=== PATIENT | male | born 1970 | race Caucasian/White ===

== ENCOUNTER → 2020-02-29 | Outpatient (REF) | payer OTHER ==
[2020-03-01 11:19] LABS: BASO # 0.1 10^3/uL (0.0-0.2); BASO % 0.8 % (0.0-1.0); EOS # 0.3 10^3/uL (0.0-0.5); EOS % 4.8 % (0.0-3.0); HEMATOCRIT 44.2 % (42.0-52.0); LYMPH % 32.6 % (24.0-44.0); MEAN CORPUSCULAR HEMOGLOBIN 28.4 pg (27.0-33.0); MEAN CORPUSCULAR HGB CONC 31.7 g/dl (32.0-36.5); MEAN CORPUSCULAR VOLUME 89.7 fl (80.0-96.0); MONO # 0.7 10^3/uL (0.0-0.8); MONO % 10.5 % (0.0-5.0); NEUTROPHILS # 3.2 10^3/uL (1.5-8.5); NEUTROPHILS % 51.1 % (36.0-66.0); PLATELET COUNT, AUTOMATED 277 10^3/uL (150-450); RED BLOOD COUNT 4.93 10^6/uL (4.30-6.10); WHITE BLOOD COUNT 6.3 10^3/uL (4.0-10.0)
[2020-03-01 11:47] LABS: CHOLESTEROL RISK RATIO 2.818 (<5)
== END ==
LOC: M SFHCCLAY 14:47
PROVIDERS: ATTEND Family Medicine
DX: Z00.00 Encounter for general adult medical examination without abnormal findings (principal); Z13.220 Encounter for screening for lipoid disorders; Z13.1 Encounter for screening for diabetes mellitus

== ENCOUNTER → 2020-03-14 | Outpatient (REF) | payer OTHER ==
[2020-03-15 12:24] LABS: ALBUMIN 4.5 GM/DL (3.2-5.2); ALT/SGPT 40 U/L (12-78); BILIRUBIN,TOTAL 1.2 MG/DL (0.2-1.0); BLOOD UREA NITROGEN 17 MG/DL (7-18); CALCIUM LEVEL 9.4 MG/DL (8.5-10.1); CARBON DIOXIDE LEVEL 30 MEQ/L (21-32); CHLORIDE LEVEL 103 MEQ/L (98-107); CREATININE FOR GFR 0.98 MG/DL (0.70-1.30); GLOMERULAR FILTRATION RATE > 60.0 (>56); GLUCOSE, FASTING 90 MG/DL (70-100); POTASSIUM SERUM 5.9 MEQ/L (3.5-5.1); SODIUM LEVEL 137 MEQ/L (136-145); TOTAL PROTEIN 7.7 GM/DL (6.4-8.2)
== END ==
LOC: M SFHCCLAY 14:29
PROVIDERS: ATTEND Family Medicine
DX: Z00.00 Encounter for general adult medical examination without abnormal findings (principal); Z13.1 Encounter for screening for diabetes mellitus; Z13.220 Encounter for screening for lipoid disorders

== ENCOUNTER → 2020-04-05 | Outpatient (REF) | payer OTHER ==
[~2020-04-05] MED LIST: EPIP0.3I2 IM
[2020-04-06 13:42] LABS: BLOOD UREA NITROGEN 15 MG/DL (7-18); CARBON DIOXIDE LEVEL 27 MEQ/L (21-32); CHLORIDE LEVEL 102 MEQ/L (98-107); GLOMERULAR FILTRATION RATE > 60.0 (>56); GLUCOSE, FASTING 88 MG/DL (70-100); POTASSIUM SERUM 6.2 MEQ/L (3.5-5.1); SODIUM LEVEL 136 MEQ/L (136-145)
== END ==
LOC: M SFHCCLAY 14:41
PROVIDERS: ATTEND Family Medicine
DX: E87.5 Hyperkalemia (principal)

== ENCOUNTER → 2020-04-06 | Outpatient (CLI) | payer OTHER ==
[2020-04-06 16:37] LABS: CREATININE FOR GFR 1.52 MG/DL (0.70-1.30); GLOMERULAR FILTRATION RATE 51.7 (>56); POTASSIUM SERUM 4.1 MEQ/L (3.5-5.1)
[2020-04-06 16:38] LABS: CALCIUM LEVEL 9.2 MG/DL (8.5-10.1)
== END ==
LOC: M LAB 15:38
PROVIDERS: ATTEND Family Medicine
DX: E87.5 Hyperkalemia (principal)

== ENCOUNTER → 2020-04-14 | Outpatient (CLI) | payer OTHER | LOC: M LABSMTC 13:51 | PROVIDERS: ATTEND Anesthesiology | DX: Z01.812 Encounter for preprocedural laboratory examination (principal); Z20.822 Contact with and (suspected) exposure to COVID-19 ==

== ENCOUNTER 2020-04-19 06:45 | Day surgery (SDC) | payer OTHER ==
[~2020-04-19] VITALS: Ht 177.8 cm; Wt 89.4 kg
--- OUTSIDE RECORDS SUMMARY | 2020-04-19 06:51 | CCD ---
Continuity of Care Document (CCD) Created on: 03/28/2020 Aldo Maldonado External Reference #: [id number] : 1970 Sex: Male Author Author Aldo KIRKPATRICK MD Organization Unknown Address [address] [facility] [address] [place] [address] Phone [phone] Care Team Providers Care Histotechnologist Supervisor Name Role Phone Reta Figueroa D.O. AUTM [phone] Problems Description No Information Available Social History Type Date Description Comments Sex Unknown ETOH Use 10 on the Weekends Tobacco Use Start: Unknown Denies Smoking Recreational Drug Use Denies Drug Use Allergies, Adverse Reactions, Alerts Description No Known Drug Allergies Medications Active Medications SIG Qnty Indications Ordering Provide r Date Metamucil 0.52gm Capsules 1 cap by mouth qd Unknown Immunizations Description No Information Available Vital Signs Date Vital Result Comment 03/28/2020 3:10pm BP Systolic 130 mmHg BP Diastolic 86 mmHg Heart Rate 71 /min Height 70 inches 5'10" Weight 203.50 lb BMI (Body Mass Index) 29.2 kg/m2 [facility] Body Weight 166 lb Weight 92.308 kg BSA (Body Surface Area) 2.10 m2 Results Description No Information Available Procedures Description No Information Available Medical Devices Description No Information Available Encounters Description No Information Available Assessments Description No Information Available Plan of Treatment No Information Available Functional Status Description No Information Available Mental Status Description No Information Available Referrals Refer to Reason for Referral Status Appt Date Jonathan Kirkpatrick MD COLONOSCOPY Created 03/01/[address] [address] [phone]
--- OUTSIDE RECORDS SUMMARY | 2020-04-19 06:51 | CCD | Continuity of Care Document ---
Author Author Aldo BUNCH PA Organization Unknown Address [address] [place] [address] [place] [address] Phone [phone] Care Team Providers Care French Weaver Name Role Phone Anthony Low MD AUTM [phone] Joey Cummings AUTM [phone] Problems Description No Information Available Social History Type Date Description Comments Sex Unknown ETOH Use Denies alcohol use Tobacco Use Start: Unknown Patient has never smoked Smoking Status Reviewed: 04/01/20 Patient has never smoked Allergies, Adverse Reactions, Alerts Active Allergies Reaction Severity Comments Date NKDA 12/27/2016 Bee Sting 04/01/2020 Medications Active Medications SIG Qnty Indications Ordering Provide r Date Meclizine HCL 25mg Tablets 1-2 tablets by mouth three times daily as needed for dizziness. 30tabs H81.399 Cortes Winchester JR., M.D. 04/01/2020 Aspirin 325mg Tablets Last dose this morning Unknown History Medications No Active Medications Unknown - 04/01/2020 Immunizations Description No Information Available Vital Signs Date Vital Result Comment 04/01/2020 10:06am BP Systolic 141 mmHg BP Diastolic 92 mmHg Heart Rate 67 /min Respiratory Rate 12 /min O2 % BldC Oximetry 97 % Body Temperature 98.6 F Weight 198.00 lb Height 70 inches 5'10" BMI (Body Mass Index) 28.4 kg/m2 Pain Level 2 12/27/2016 12:22pm BP Systolic 118 mmHg BP Diastolic 82 mmHg Heart Rate 76 /min Respiratory Rate 18 /min O2 % BldC Oximetry 97 % Body Temperature 98.2 F Weight 200.00 lb Height 70 inches 5'10" BMI (Body Mass Index) 28.7 kg/m2 Pain Level 5 Results Description No Information Available Procedures Description No Information Available Medical Devices Description No Information Available Encounters Type Date Location Provider Dx Diagnosis Office Visit 04/01/2020 9:10a Main Office BARRY Ruiz H81.3 99 Other peripheral vertigo, unspecified ear Z20.828 Contact w and exposure to ot h viral communicable diseases Assessments Date Code Description Provider 04/01/2020 H81.399 Other peripheral vertigo, unspec ified ear BARRY Ruiz 04/01/2020 Z20.828 Contact with and (merino spected) exposure to other viral communicable diseases BARRY Ruiz Plan of Treatment No Information Available Functional Status Description No Information Available Mental Status Description No Information Available Referrals Description No Information Available
--- OUTSIDE RECORDS SUMMARY | 2020-04-19 06:51 | CCD | Continuity of Care Document ---
Author Author Aldo BUNCH Organization Unknown Address [address] [place] [address] [place] [address] Phone [phone] Care Team Providers Care Route Sales Person Name Role Phone Anthony Low MD AUTM [phone] Joey Cummings AUTM [phone] Problems Description No Information Available Social History Type Date Description Comments Sex Unknown ETOH Use Denies alcohol use Tobacco Use Start: Unknown Patient has never smoked Smoking Status Reviewed: 04/01/20 Patient has never smoked Allergies, Adverse Reactions, Alerts Active Allergies Reaction Severity Comments Date NKDA 12/27/2016 Bee Sting 04/01/2020 Medications Active Medications SIG Qnty Indications Ordering Provide r Date Aspirin 325mg Tablets Last dose this morning [...] Description No Information Available Plan of Treatment 04/01/2020 - BARRY Ruiz* All * New Medication:* No Active Medications - Functional Status Description No Information Available Mental Status Description No Information Available Referrals Description No Information Available
--- OUTSIDE RECORDS SUMMARY | 2020-04-19 06:51 | CCD ---
Author Author [facility] Organization [facility] Address Unknown Phone Unavailable Care Team Providers Care Bsa/Aml Compliance Officer Name Role Phone Mehul SUAREZ Unavailable Unavailable DANIELAMehul PA Unavailable Unavailable DANIELA, Mehul VIDES PA Unavailable Unavailable DANIELA, Mehul VIDES PA Unavailable Unavailable DANIELA, Mehul VIDES PA Unavailable Unavailable DANIELA, Mehul VIDES PA Unavailable Unavailable DANIELA, Mehul VIDES PA Unavailable Unavailable DANIELA, Mehul VIDES PA Unavailable Unavailable DANIELA, Mehul VIDES PA Unavailable Unavailable DANIELA, Mehul VIDES PA Unavailable Unavailable DANIELA, Mehul VIDES PA Unavailable Unavailable DANIELA, Mehul VIDES PA Unavailable Unavailable DANIELA, Mehul VIDES PA Unavailable Unavailable DANIELA, Mehul VIDES PA Unavailable Unavailable DANIELA, Mehul VIDES PA Unavailable Unavailable DANIELA, L PEEWEE PA Unavailable Unavailable DANIELA, L PEEWEE PA Unavailable Unavailable DANIELA, Meuhl VIDES PA Unavailable Unavailable DANIELA, Mehul VIDES PA Unavailable Unavailable WarnerSera PA Unavailable Unavailable WarnerSeran PA Unavailable Unavailable WarnerSera Beth PA Unavailable Unavailable WarnerSeran PA Unavailable Unavailable WarnerZamzamy Beth PA Unavailable Unavailable WarnerSera Beth PA Unavailable Unavailable WarnerZamzamy Beth PA Unavailable Unavailable WarnerSera Beth PA Unavailable Unavailable Warner Sera Beth PA Unavailable Unavailable WarnerZamzamy Beth PA Unavailable Unavailable Re-disclosure Warning The records that you are about to access may contain information from federally-assisted alcohol or drug abuse programs. If such information is present, then the following federally mandated warning applies: This information has been disclosed to you from records protected by federal confidentiality rules (42 CFR part 2). The federal rules prohibit you from making any further disclosure of this information unless further disclosure is expressly permitted by the written consent of the person to whom it pertains or as otherwise permitted by 42 CFR part 2. A general authorization for the release of medical or other information is NOT sufficient for this purpose. The Federal rules restrict any use of the information to criminally investigate or prosecute any alcohol or drug abuse patient.The records that you are about to access may contain highly sensitive health information, the redisclosure of which is protected by Article 27-F of the [facility] Public Health law. If you continue you may have access to information: Regarding HIV / AIDS; Provided by facilities licensed or operated by the [facility] Office of Mental Health; or Provided by the [facility] Office for People With Developmental Disabilities. If such information is present, then the following [facility] mandated warning applies: This information has been disclosed to you from confidential records which are protected by state law. State law prohibits you from making any further disclosure of this information without the specific written consent of the person to whom it pertains, or as otherwise permitted by law. Any unauthorized further disclosure in violation of state law may result in a fine or senior living sentence or both. A general authorization for the release of medical or other information is NOT sufficient authorization for further disc losure. Family History Family Member Name Family Member Gender Family Member Status Date o f Status Description Data Source(s) Unknown Unknown Problem [facility] ([facility], [facility]) father=brain Unknown Unknown Problem [facility] ([facility] Encounters Encounter Providers Location Date Indications Data Source(s ) Outpatient Attender: Beth powell 04/01/2020 08:10:00 AM EST [facility] ([facility]) Emergency Attender: PEEWEE REDDY 10/09 04:11:00 PM EDT - 11/03/2019 06:07:00 PM T [facility] Patient discharged. Medications Medication Brand Name Start Date Product Form Dose Route Admi nistrative Instructions Pharmacy Instructions Status Indications Reaction Description Data Source(s) Meclizine Hydrochloride 25 MG Oral Tablet Meclizine HCL 04/01/2020 12:00:00 AM EST ORAL active [facility] ([facility], [facility]) No Active Medications 04/01/2020 12:00:00 AM EST completed [facility] ([facility], [facility]) Insurance Providers Payer name Policy type / Coverage type Policy ID Covered democrat ID Covered democrat's relationship to stephenson Policy Stephenson Plan Information [facility] [id number] SP [id number] [facility] [id number] S [id number] [facility] [id number] S [id number] 2 [employer] [id number] Self [id number] [employer] [id number] 18 [id number] [employer] Self [id number] Problems, Conditions, and Diagnoses Code Display Name Description Problem Type Effective Dates Data Source(s) Y93.89 Activity, other specified ACTIVITY, OTHER SPECIFIED Di agnosis 11/03/2019 04:11:00 PM [facility] Y92.[address] in unspeci fied non-institutional (private) residence as the place of occurrence of the external cause [facility] Diagnosis 11/03[facility]2019 [facility] Other longterm (current) drug therapy O THER BOOK PACKER (CURRENT) DRUG THERAPY Diagnosis 11/03/2019 04:11:00 PM [facility] T63.441A Toxic effect of venom of bee s, accidental (unintentional), initial encounter TOXIC EFFECT OF VENOM OF BEES, ACCIDENTAL, INIT Diagnosis 11/03/2019 04:11:00 PM [facility] Results ID Date Data Source [id number] 04/14/2020 12:00:00 PM EST [facility] Name Value Range Interpretation Code Description Data Kady rce(s) Supporting Document(s) SARS coronavirus 2 RNA Not Detected [facility] This lab was ordered by [facility] and reported by [facility]. ID Date Data Source [id number] 04/01/2020 12:00:00 AM EST [facility] Name Value Range Interpretation Code Description Data Kady rce(s) Supporting Document(s) SARS coronavirus 2 Ag Negative [facility] This lab was ordered by [facility] and reported by [facility]. ID Date Data Source [id number] 11/05/2019 10:31:00 AM EDT [facility] Patient: LISY GAO Rep ort - Phys[facility].VisitID: [id number] [place] [address] [phone], MRegistration Date/Time: 11/03/2019 15:15 Weight:88.4 kg (S). Height/Length:70 inches (S). BMI:28 FAMILY HISTORYNegative. No significant family medical history. (Electronically signed by Joel Pendleton 11/05/2019 10:23) Name Value Range Interpretation Code Description Data Kady rce(s) Supporting Document(s) Procedure Social History Code Duration Value Status Description Data Source(s ) Smoking 04/01/2020 12:00:00 AM EST Patient has never smoked co mpleted Patient has never smoked [facility] ([facility]) Vital Signs ID Date Data Source UNK Name Value Range Interpretation Code Description Data Source(s) Body mass index (BMI) [Ratio] 28.4 kg/m2 28.4 k g/m2 [facility] ([facility]) Body height 70 [in_i] 70 [in_i] [facility] 5'10" Body weight 198.00 [lb_av] 198.00 [lb_av] [facility] T ([facility]) Body temperature 98.6 [degF] 98.6 [degF] [facility] ([facility]) Oxygen saturation in Arterial blood by Pulse oximetry 97 % 97 % [facility] ([facility]) Respiratory rate 12 /min 12 /min [facility] ( [facility]) Heart rate 67 /min 67 /min [facility] ([facility]) Diastolic blood pressure 92 mm[Hg] 92 mm[Hg] [facility] ([facility]) Systolic blood pressure 141 mm[Hg] 141 mm[Hg] [facility]) Body surface area Derived from formula 2.10 m2 2.10 m2 [facility] ([facility], ) Body weight 92.308 kg 92.308 kg [facility] ([facility]) Fraser body weight 166 [lb_av] 166 [lb_av] [facility] T ([facility]) Body mass index (BMI) [Ratio] 29.2 kg/m2 29.2 k g/m2 [facility] ([facility]) Body weight 203.50 [lb_av] 203.50 [lb_av] [facility] T ([facility], ) Body height 70 [in_i] 70 [in_i] [facility] ([facility], ) 5'10" Heart rate 71 /min 71 /min [facility] ([facility], ) Diastolic blood pressure 86 mm[Hg] 86 mm[Hg] [facility]) Systolic blood pressure 130 mm[Hg] 130 mm[Hg] Sylvester ZHANG ([facility], )
[2020-04-19] MEDS ORDERED: NS 1,000 ML IV ONE (07:00)
[2020-04-19] MEDS ORDERED: propofoL 200 MG/20 ML VIAL As Ordered ONE ×2 (07:21→08:04)
[2020-04-19] MEDS ORDERED: LIDOCAINE 2% 100MG/5ML SDV (FOR ANES.) As Ordered ONE (07:21)
--- NOTE | 2020-04-19 08:14 | ROOR ---
Patient Name: Aldo Maldonado Procedure Date: 04/19/2020 7:33 AM Date of : 1970 Age: 50 Room: [facility] Gender: Male Note Status: Finalized Procedure: Colonoscopy Indications: Screening for colorectal malignant neoplasm Providers: Jonathan Kirkpatrick MD Referring MD: Reta MICHAELS DO Requesting Provider: Medicines: Monitored Anesthesia Care Complications: No immediate complications. Procedure: Pre-Anesthesia Assessment: - Prior to the procedure, a History and Physical was performed, and patient medications and allergies were reviewed. The patient is competent. The risks and benefits of the procedure and the sedation options and risks were discussed with the patient. All questions were answered and informed consent was obtained. Patient identification and proposed procedure were verified by the physician, the nurse and the contract analyst in the endoscopy suite. Mental Status Examination: alert and oriented. Airway Examination: normal oropharyngeal airway and neck mobility. Respiratory Examination: clear to auscultation. CV Examination: normal. Prophylactic Antibiotics: The patient does not require prophylactic antibiotics. Prior Anticoagulants: The patient has taken no previous anticoagulant or antiplatelet agents. ASA Grade Assessment: II - A patient with mild systemic disease. After reviewing the risks and benefits, the patient was deemed in satisfactory condition to undergo the procedure. The anesthesia plan was to use monitored anesthesia care (MAC). Immediately prior to administration of medications, the patient was re-assessed for adequacy to receive sedatives. The heart rate, respiratory rate, oxygen saturations, blood pressure, adequacy of pulmonary ventilation, and response to care were monitored throughout the procedure. The physical status of the patient was re-assessed after the procedure. The Colonoscope was introduced through the anus and advanced to the cecum, identified by appendiceal orifice and ileocecal valve. The colonoscopy was performed without difficulty. The patient tolerated the procedure well. The quality of the bowel preparation was good. Findings: Skin tags were found on perianal exam. Hemorrhoids were found on perianal exam. A diminutive polyp was found in the transverse colon. The polyp was sessile. The polyp was removed with a cold snare. Resection and retrieval were complete. Estimated blood loss: none. A few small-mouthed diverticula were found in the sigmoid colon. Non-bleeding internal hemorrhoids were found during retroflexion. The hemorrhoids were Grade II (internal hemorrhoids that prolapse but reduce spontaneously). Impression: - Perianal skin tags found on perianal exam. - Hemorrhoids found on perianal exam. - One diminutive polyp in the transverse colon, removed with a cold snare. Resected and retrieved. - Diverticulosis in the sigmoid colon. - Non-bleeding internal hemorrhoids. Recommendation: - Repeat colonoscopy in 10 years for screening purposes. Procedure Code(s): --- Professional --- 94343, Colonoscopy, flexible; with removal of tumor(s), polyp(s), or other lesion(s) by snare technique Diagnosis Code(s): --- Professional --- Z12.11, Encounter for screening for malignant neoplasm of colon K63.5, Polyp of colon K64.1, Second degree hemorrhoids K64.4, Residual hemorrhoidal skin tags K57.30, Diverticulosis of large intestine without perforation or abscess without bleeding CPT copyright 2019 [employer]. All rights reserved. The codes documented in this report are preliminary and upon hospital coder review may be revised to meet current compliance requirements. Jonathan Kirkpatrick MD Jonathan Kirkpatrick MD 04/19/2020 8:14:10 AM Electronically signed by Jonathan Kirkpatrick MD Number of Addenda: 0 Note Initiated On: 04/19/2020 7:33 AM Estimated Blood Loss: Estimated blood loss: none.
[2020-04-19 08:40] VITALS: BP 123/86
== END 2020-04-19 10:00 | disposition home or self-care (01) ==
LOC: M OPP 06:45
PROVIDERS: ATTEND Surgery
DX: Z12.11 Encounter for screening for malignant neoplasm of colon (principal); D12.3 Benign neoplasm of transverse colon; K64.1 Second degree hemorrhoids; K57.30 Diverticulosis of large intestine without perforation or abscess without bleeding; K64.4 Residual hemorrhoidal skin tags; Z91.030 Bee allergy status; Z79.899 Other long term (current) drug therapy

== ENCOUNTER → 2021-05-23 | Outpatient (REF) | payer OTHER | LOC: M SFHCCLAY 11:15 | PROVIDERS: ATTEND Family Medicine | DX: L57.0 Actinic keratosis (principal); L81.4 Other melanin hyperpigmentation; L82.1 Other seborrheic keratosis ==

== ENCOUNTER → 2022-03-05 | Outpatient (REF) | payer OTHER ==
[2022-03-05 17:47] LABS: ALKALINE PHOSPHATASE 79 U/L (46-116); ALT/SGPT 36 U/L (7.0-40); AST/SGOT 26 U/L (<34); BILIRUBIN,TOTAL 0.9 MG/DL (0.3-1.2); BLOOD UREA NITROGEN 13 MG/DL (9-23); CALCIUM LEVEL 8.9 MG/DL (8.5-10.1); CARBON DIOXIDE LEVEL 29 MMOL/L (20-31); CHLORIDE LEVEL 101 MMOL/L (98-107); CREATININE FOR GFR 0.82 MG/DL (0.70-1.30); GLOMERULAR FILTRATION RATE > 60.0 (>56); GLUCOSE, FASTING 92 MG/DL (60-100); POTASSIUM SERUM 4.7 MMOL/L (3.5-5.1); SODIUM LEVEL 136 MMOL/L (136-145); TOTAL PROTEIN 7.5 G/DL (5.7-8.2)
== END ==
LOC: M SFHCCLAY 09:51
PROVIDERS: ATTEND Nurse Practitioner Family
DX: N28.9 Disorder of kidney and ureter, unspecified (principal)

== ENCOUNTER → 2024-04-23 | Outpatient (REF) | payer OTHER | LOC: M SFHCCLAY 09:31 | PROVIDERS: ATTEND Nurse Practitioner Family | DX: Z00.00 Encounter for general adult medical examination without abnormal findings (principal); R42 Dizziness and giddiness; Z91.030 Bee allergy status; K42.9 Umbilical hernia without obstruction or gangrene; Z53.9 Procedure and treatment not carried out, unspecified reason ==

== ENCOUNTER → 2024-10-22 | Outpatient (REF) | payer OTHER ==
[2024-10-22 12:40] LABS: BASO # 0.0 10^3/uL (0.0-0.2); BASO % 0.7 % (0.0-1.0); EOS # 0.2 10^3/uL (0.0-0.5); EOS % 2.8 % (0.0-3.0); LYMPH # 2.0 10^3/uL (1.5-5.0); LYMPH % 37.0 % (24.0-44.0); MONO # 0.6 10^3/uL (0.0-0.8); MONO % 12.0 % (2.0-8.0); NEUTROPHILS # 2.5 10^3/uL (1.5-8.5); NEUTROPHILS % 47.3 % (36.0-66.0); PLATELET COUNT, AUTOMATED 283 10^3/uL (150-450)
[2024-10-22 12:50] LABS: ALT/SGPT 25 U/L (7.0-40); AST/SGOT 21 U/L (<34); CALCIUM LEVEL 9.2 MG/DL (8.5-10.1); CARBON DIOXIDE LEVEL 29 MMOL/L (20-31); CHLORIDE LEVEL 102 MMOL/L (98-107); CHOLESTEROL LEVEL 217 MG/DL (<200); CHOLESTEROL RISK RATIO 2.55 (<5); CREATININE FOR GFR 0.90 MG/DL (0.70-1.30); GLOMERULAR FILTRATION RATE > 90.0 (>56); IRON (FE) 101 UG/DL (65-175); LDL CHOLESTEROL 111.3 MG/DL (<100); NON-HDL-C 132.1 MG/DL; PERCENT SATURATION 29.6 % (19.7-50.0); POTASSIUM SERUM 4.9 MMOL/L (3.5-5.1); PSA SCREENING 0.48 NG/ML (< 4.00); SODIUM LEVEL 138 MMOL/L (136-145); TRIGLYCERIDES LEVEL 104 MG/DL (<150)
[2024-10-22 12:51] LABS: T UPTAKE 36.9 % (22.5-37.0); THYROXINE (T4) 5.9 UG/DL (4.5-10.9)
[2024-10-22 12:52] LABS: TESTOSTERONE 318 NG/DL (241-827)
== END ==
LOC: M SFHCCLAY 07:55
PROVIDERS: ATTEND Nurse Practitioner Family
DX: R53.83 Other fatigue (principal); N28.9 Disorder of kidney and ureter, unspecified; Z91.030 Bee allergy status; K42.9 Umbilical hernia without obstruction or gangrene; Z12.5 Encounter for screening for malignant neoplasm of prostate; R68.82 Decreased libido

== ENCOUNTER → 2024-12-21 | Outpatient (CLI) | payer OTHER | LOC: M SOG 07:29 | PROVIDERS: ATTEND Orthopaedic Surgery | DX: M25.531 Pain in right wrist (principal) ==

== ENCOUNTER 2025-01-12 12:34 | Day surgery (SDC) | payer OTHER ==
[~2025-01-12] VITALS: Ht 177.8 cm; Wt 94.3 kg
[2025-01-12] MEDS ORDERED: dexmedeTOMIDine (4 MCG/ML) 200 MCG/50 ML BTL As Ordered ONE (12:45)
[2025-01-12] MEDS ORDERED: ONDANSETRON 4MG/2ML VIAL As Ordered ONE (12:45)
[2025-01-12] MEDS ORDERED: dexAMETHasone 4 MG/ML 1 ML VIAL As Ordered ONE (12:45)
[2025-01-12] MEDS ORDERED: MIDAZOLAM INJ 2 MG/2 ML VIAL As Ordered ONE (12:45)
[2025-01-12] MEDS ORDERED: LIDOCAINE 2% 100 MG/5 ML SDV (FOR ANES.) As Ordered ONE (12:47)
[2025-01-12] MEDS ORDERED: ACETAMINOPHEN 1000MG/100ML IV BAG As Ordered ONE (12:49)
[2025-01-12] MEDS ORDERED: SCOPOLAMINE 1MG TRANSDERMAL PATCH TOP ONE (13:00)
[2025-01-12] MEDS: LR 1,000 ML IV SCH (13:15)
[2025-01-12 14:30] VITALS: BP 108/62; TEMP 97.8; O2SAT 95
== END 2025-01-12 15:03 | disposition home or self-care (01) ==
LOC: M SDC 12:34
PROVIDERS: ATTEND Orthopaedic Surgery
DX: G56.01 Carpal tunnel syndrome, right upper limb (principal); Z91.030 Bee allergy status
CPT/HCPCS: 29848; J0131; J0665; J1100; J2250; J2405; J3010